=== PATIENT | female | born 1965 | race Caucasian/White ===

== ENCOUNTER 2024-03-28 09:22 | Outpatient (CLI) | payer BC, MEDICARE ==
[2024-03-28] MEDS ORDERED: Iopamidol 370 76% 100 ML VIAL ONE (12:51)
== END 2024-03-28 09:23 | disposition home or self-care (01) ==
LOC: CSHRAD 09:22
PROVIDERS: ATTEND Otolaryngology
DX: H93.A9 Pulsatile tinnitus, unspecified ear (principal)
CPT/HCPCS: 70496; 70498; 82565